=== PATIENT | female | born 1970 | race Caucasian/White ===

== ENCOUNTER → 2021-08-24 09:46 | Outpatient (BNVA) | payer OTHER, SELFPAY | PROVIDERS: PCP Internal Medicine; Visit Provider Internal Medicine | DX: Z86.73 Personal history of transient ischemic attack (TIA), and cerebral infarction without residual deficits (principal) | CPT/HCPCS: 93005; 99202 ==

== ENCOUNTER 2021-08-30 09:17 | Outpatient (REF) | payer OTHER, SELFPAY ==
[2021-08-30 09:27] VITALS: BMI 35.0
[2021-08-30 09:28] VITALS: BP 138/85; PULSE 73; RESP 16; TEMP 36.4; O2SAT 98
[2021-08-30 09:55] VITALS: BP 101/60; PULSE 61; RESP 16; O2SAT 96
--- NOTE | 2021-08-30 12:03 | P.BOP_ITS ---
Brief Operative Note Date of Service: 08/30/21 Pre-op diagnosis: CVA Post-op diagnosis: same Procedure: Placement of implantable loop recorder Implants: After obtaining full informed consent patient was brought to the minor surgery suite. Patient was then laid supine on the operating table. Patient's precordial area was then prepped and draped in a sterile fashion. Patient was then given 2% lidocaine with epinephrine intradermally and subcutaneously in the precordial area. A [facility] implantable loop recorder with serial [id number] was placed in subcutaneous area using Seldinger technique. Measured R-wave at 0.37 mV. The wound was then closed with a Steri-Strip and a pressure bandage applied. Patient tolerated the procedure well Surgeon: Mustapha Galeano MD Anesthesia: local Was an Occupational Therapy Assistant used for this Procedure?: No Estimated blood loss (mL): 1 Pathology: none sent Condition: stable Disposition: same day
== END 2021-08-30 09:18 | disposition home or self-care (01) ==
LOC: HO.MS 09:17
PROVIDERS: PCP Internal Medicine; Visit Provider Internal Medicine Cardiovascular Disease
PROC: (CPT 33285; principal; 2021-08-30 09:30)
DX: I63.9 Cerebral infarction, unspecified (principal)
CPT/HCPCS: 33285; C1764

== ENCOUNTER 2021-09-07 07:00 | Day surgery (SDC) | payer OTHER, SELFPAY ==
--- NOTE | 2021-09-06 09:48 | HO.ANESPROP2 ---
Documented by User: Cuca Quiroz NP 09/06/21 09:50 HPI - Anesthesia Eval Consult details Narrative: 50yo F for Transesophageal Echocardiogram s/p embolic CVA 04/2021 ILR in situ PMFSH Active Problems Active Problems: All Active Problems (Updated 09/04/21 @ 09:27 by Ashley Pierson, MONSERRAT) Embolic stroke (Acute) Past Medical History Medical History Depression Diverticulosis Gastrointestinal bleeding Hiatal hernia History of embolic stroke Iron deficiency anemia Status post placement of implantable loop recorder Family History Family History Father Hypertension Atrial fibrillation Mother Hypertension Surgical History Surgical History No pertinent past surgical history Social History Social History Patient Tobacco Use Status: Former Tobacco user Are you DNR?: No Advance Directives: No Advance Directives Information Provided: Yes Recently lost weight without trying: No Meds Allergies Allergy/AdvReac Type Severity Reaction Status Date / Time No Known Allergies Allergy Verified 08/24/21 09:52 Home Medications Medication Instructions Recorded Confirmed Last Taken Type aspirin 81 mg tablet,delayed 81 mg PO DAILY 08/24/21 09/04/21 09/07/21 History release atorvastatin 80 mg tablet 80 mg PO DAILY 08/24/21 09/04/21 Unknown History buspirone 5 mg tablet 5 mg PO TID 08/24/21 09/04/21 09/07/21 History ferrous sulfate 325 mg (65 mg mg PO 08/24/21 08/24/21 09/07/21 History iron) tablet,delayed release fluoxetine 20 mg capsule 20 mg PO DAILY 08/24/21 09/04/21 Unknown History losartan 100 mg tablet 100 mg PO DAILY 08/24/21 09/04/21 Unknown History pantoprazole 40 mg tablet,delayed 40 mg PO BID 08/24/21 09/04/21 09/07/21 History release trazodone 50 mg tablet 25 mg PO BEDTIME PRN 08/24/21 09/04/21 Unknown History Exam Exam Date and Time: September 06, 2021 0948 Narrative Narrative: EKG 08/2021 sinus bradycardia, 52/Min; no significant ST-T changes and otherwise unremarkable transthoracic echocardiogram at [facility] 04/2021 that showed LVEF of 70%; mild eccentric septal hypertrophy but otherwise unremarkable.? Bubble study quality was limited but no obvious shunting Assessment and Plan Assessment Anesthesia Assessment: Chart Reviewed Documented by User: Savannah Harrison MD 09/07/21 07:57 PMFSH Past Medical History Medical History Depression Diverticulosis Gastrointestinal bleeding Hiatal hernia History of embolic stroke Iron deficiency anemia Status post placement of implantable loop recorder Family History Family History Father Hypertension Atrial fibrillation Mother Hypertension Surgical History Surgical History No pertinent past surgical history History of Problems with Anesthesia: No Social History Social History Patient Tobacco Use Status: Former Tobacco user Are you DNR?: No Advance Directives: No Advance Directives Information Provided: Yes Recently lost weight without trying: No Meds Allergies Allergy/AdvReac Type Severity Reaction Status Date / Time No Known Allergies Allergy Verified 08/24/21 09:52 Home Medications Medication Instructions Recorded Confirmed Last Taken Type aspirin 81 mg tablet,delayed 81 mg PO DAILY 08/24/21 09/04/21 09/07/21 History release atorvastatin 80 mg tablet 80 mg PO DAILY 08/24/21 09/04/21 Unknown History buspirone 5 mg tablet 5 mg PO TID 08/24/21 09/04/21 09/07/21 History ferrous sulfate 325 mg (65 mg mg PO 08/24/21 08/24/21 09/07/21 History iron) tablet,delayed release fluoxetine 20 mg capsule 20 mg PO DAILY 08/24/21 09/04/21 Unknown History losartan 100 mg tablet 100 mg PO DAILY 08/24/21 09/04/21 Unknown History pantoprazole 40 mg tablet,delayed 40 mg PO BID 08/24/21 09/04/21 09/07/21 History release trazodone 50 mg tablet 25 mg PO BEDTIME PRN 08/24/21 09/04/21 Unknown History Exam Airway Mallampati Class: II TM Dist: >3cm Neck ROM: Full Loose/Missing/Broken Teeth: No Heart: RRR Lungs: CTA Assessment and Plan Assessment Anesthesia Assessment: Anesthesia Plan Discussed Final Anesthetic Review History of Problems with Anesthesia: No NPO: Yes ASA Class: III Final Preanesthetic Review: Meds/Allgs Chart Reviewed, Consent Obtained/Reviewed and Anes Risks/Benef Reviewed Patient Risk: Intermediate Procedure Risk: Low Anesthetic Plan Anesthetic Plan: MAC: Disposition: Standard PACU
[2021-09-07 07:02] VITALS: BP 115/81; PULSE 64; RESP 18; TEMP 36.1; O2SAT 98; BMI 36.1
[2021-09-07] MEDS: Lactated Ringers 1,000 ML 100 ML IVCONT (07:26)
--- NOTE | 2021-09-07 07:46 | CA_ITS ---
Transesophageal Echocardiogram Amended Patient (Last, First, Middle): Dasha Vincent, Gender: Female Date of : 1970 Age: 50 Procedure Date: 09/07/2021 Procedure Type: Transesophageal Echocardiogram Location: OP Height: 160.02 cm Weight: 92.53 kg BSA: 1.95 m2 Heart Rate: bpm BP: 115 / 81 mmHg Lumber Straightened: ANGÉLICA Referring MD: Maximilian Lau MD Symptoms: I63.9 - Cerebral infarction, unspecified Conclusion: ??? No evidence of interatrial shunting. ??? Small plaque is seen in the arch and descending thoracic aorta. Findings Procedure Information The quality of the study was good. Consent was obtained prior to the procedure. Pre LUCY oral cavity was checked and revealed no overcrowding. The adult 3D probe was passed with no difficulty. Left Ventricle Normal left ventricular cavity size. The left ventricular systolic function is normal. The visually estimated ejection fraction is between 60-65%. Right Ventricle Normal right ventricular cavity size and systolic function. Atria There is lipomatous hypertrophy of the interatrial septum. There is no evidence of a thrombus in the left atrial appendage. Normal velocities at the mouth of appendage. Color Doppler negative for interatrial shunting.Bubble study attempted 3 times. No evidence of interatrial shunting. Abdominal pressure was also applied with no change. Aortic Valve There is a normal trileaflet aortic valve. There is no aortic valve stenosis. There is trace (trivial) aortic valve regurgitation. Mitral Valve The mitral valve appears normal. There is trace mitral valve regurgitation. There is no mitral valve stenosis. Pulmonic Valve The pulmonic valve is likely normal. Tricuspid Valve Normal tricuspid valve structure. There is trace tricuspid valve regurgitation. Great Vessels Small plaque is seen in the arch and descending thoracic aorta. Pericardium/Pleural There is no evidence of pericardial effusion. Prior Study Comparison No prior study available for comparison. Updated by Maximilian Lau on 05:27 PM with Status of Final Maximilian Lau MD electronically signed on 09/07/2021 5:27:37 PM with status of Final
--- NOTE | 2021-09-07 08:18 | MHC.SHP ---
Pre-Procedural Eval Section A Date of Service: 09/07/21 The patient is an INPATIENT: No Section B Chief Complaint: infarction Allergies: Allergies Allergy/AdvReac Type Severity Reaction Status Date / Time No Known Allergies Allergy Verified 08/24/21 09:52 Plan I have reviewed the history and physical and performed a pertinent physical examination on my patient. No changes have occurred unless specified.
[2021-09-07 08:53] VITALS: BP 108/51; PULSE 57; RESP 18; TEMP 36.4; O2SAT 97
[2021-09-07 09:10] VITALS: BP 119/67; PULSE 59; RESP 15; TEMP 36.6; O2SAT 97
== END 2021-09-07 09:41 | disposition home or self-care (01) ==
PROVIDERS: PCP Internal Medicine; Visit Provider Internal Medicine
PROC: (CPT 93312; principal; 2021-09-07 08:30)
DX: I63.10 Cerebral infarction due to embolism of unspecified precerebral artery (principal); G81.94 Hemiplegia, unspecified affecting left nondominant side; Z95.818 Presence of other cardiac implants and grafts; F32.9 Major depressive disorder, single episode, unspecified; D50.9 Iron deficiency anemia, unspecified; Z79.82 Long term (current) use of aspirin; Z79.899 Other long term (current) drug therapy; Z87.891 Personal history of nicotine dependence
CPT/HCPCS: 93312

== ENCOUNTER → 2021-09-25 08:32 | Outpatient (BNVA) | payer OTHER, SELFPAY | PROVIDERS: PCP Internal Medicine; Visit Provider Internal Medicine | DX: Z86.73 Personal history of transient ischemic attack (TIA), and cerebral infarction without residual deficits (principal); I10 Essential (primary) hypertension; E78.5 Hyperlipidemia, unspecified; Z95.818 Presence of other cardiac implants and grafts; Z79.899 Other long term (current) drug therapy | CPT/HCPCS: 99212 ==

== ENCOUNTER → 2022-03-27 08:23 | Outpatient (BNVA) | payer OTHER, SELFPAY | PROVIDERS: PCP Internal Medicine; Visit Provider Internal Medicine | DX: I10 Essential (primary) hypertension (principal); E78.5 Hyperlipidemia, unspecified; Z86.73 Personal history of transient ischemic attack (TIA), and cerebral infarction without residual deficits; Z79.899 Other long term (current) drug therapy | CPT/HCPCS: 99212 ==

== ENCOUNTER → 2023-01-18 23:59 | Outpatient (BNV) | payer OTHER, SELFPAY ==
--- NOTE | 2023-01-27 14:40 | MHC.OFFVIS ---
Intake Intake Visit Reasons: Remote ILR- [facility] Allergies No Known Allergies Allergy (Verified 03/27/22 08:29) [facility] Medical History (Updated 09/25/21 @ 12:27 by Maximilian Lau MD) Depression Diverticulosis Essential hypertension Gastrointestinal bleeding Hiatal hernia History of embolic stroke Iron deficiency anemia Other and unspecified hyperlipidemia Status post placement of implantable loop recorder Surgical History No pertinent past surgical history Family History Father Hypertension Atrial fibrillation Mother Hypertension Social History Patient Tobacco Use Status: Former Tobacco user Office Procedures Cardiac Device Check Cardiac Device Check Details: Date of service 01/18/2023; in the current monitoring period, there is no evidence of atrial fibrillation. No atrial fibrilllation during lifetime. [id number] Cardiac Interrogation, subcut cardiac rhythm monitor Procedure code (CPT) selection complete Assessment & Plan Assessment & Plan (1) Embolic stroke: Code(s): I63.9 - Cerebral infarction, unspecified Coding Level of Care Code Procedure Only Diagnoses Embolic stroke I63.9 CPT Codes Cardiac Device Check - Cardiac Device 16: [id number] Cardiac Interrogation, subcut cardiac rhythm monitor ([id number])
== END ==
PROVIDERS: PCP Internal Medicine; Visit Provider Internal Medicine
DX: I63.9 Cerebral infarction, unspecified (principal)
CPT/HCPCS: 93298

== ENCOUNTER → 2023-02-18 23:59 | Outpatient (BNV) | payer OTHER, SELFPAY ==
--- NOTE | 2023-02-20 09:50 | MHC.OFFVIS ---
Intake Intake Visit Reasons: Remote ILR Check- [facility] Allergies No Known Allergies Allergy (Verified 03/27/22 08:29) [facility] Medical History (Updated 09/25/21 @ 12:27 by Maximilian Lau MD) Depression Diverticulosis Essential hypertension Gastrointestinal bleeding Hiatal hernia History of embolic stroke Iron deficiency anemia Other and unspecified hyperlipidemia Status post placement of implantable loop recorder Surgical History No pertinent past surgical history Family History Father Hypertension Atrial fibrillation Mother Hypertension Social History Patient Tobacco Use Status: Former Tobacco user Office Procedures Cardiac Device Check Cardiac Device Check Details: Date of service 02/18/2023; in the current monitoring period, there is no evidence of atrial fibrillation. No atrial fibrilllation during lifetime. [id number] Cardiac Interrogation, subcut cardiac rhythm monitor Procedure code (CPT) selection complete Assessment & Plan Assessment & Plan (1) Embolic stroke: Code(s): I63.9 - Cerebral infarction, unspecified Coding Level of Care Code Procedure Only Diagnoses Embolic stroke I63.9 CPT Codes Cardiac Device Check - Cardiac Device 16: [id number] Cardiac Interrogation, subcut cardiac rhythm monitor ([id number])
== END ==
PROVIDERS: PCP Internal Medicine; Visit Provider Internal Medicine
DX: I63.9 Cerebral infarction, unspecified (principal)
CPT/HCPCS: 93298

== ENCOUNTER → 2023-03-21 23:59 | Outpatient (BNV) | payer OTHER, SELFPAY ==
--- NOTE | 2023-03-21 13:51 | MHC.OFFVIS ---
Intake Intake Visit Reasons: Remote ILR Check- [facility] Allergies No Known Allergies Allergy (Verified 03/27/22 08:29) [facility] Medical History (Updated 09/25/21 @ 12:27 by Maximilian Lau MD) Other and unspecified hyperlipidemia Essential hypertension Depression Status post placement of implantable loop recorder History of embolic stroke Diverticulosis Gastrointestinal bleeding Hiatal hernia Iron deficiency anemia Surgical History No pertinent past surgical history Family History Father Hypertension Atrial fibrillation Mother Hypertension Social History Patient Tobacco Use Status: Former Tobacco user Office Procedures Cardiac Device Check Cardiac Device Check Details: Date of service 03/21/2023; in the current monitoring period, there is no evidence of atrial fibrillation. No atrial fibrilllation during lifetime. [id number] Cardiac Interrogation, subcut cardiac rhythm monitor Procedure code (CPT) selection complete Assessment & Plan Assessment & Plan (1) Embolic stroke: Code(s): I63.9 - Cerebral infarction, unspecified Coding Level of Care Code Procedure Only Diagnoses Embolic stroke I63.9 CPT Codes Cardiac Device Check - Cardiac Device 16: [id number]-[id number] Cardiac Interrogation, subcut cardiac rhythm monitor ([id number])
== END ==
PROVIDERS: PCP Internal Medicine; Visit Provider Internal Medicine
DX: I63.9 Cerebral infarction, unspecified (principal)
CPT/HCPCS: 93298

== ENCOUNTER → 2023-04-21 23:59 | Outpatient (BNV) | payer OTHER, SELFPAY ==
--- NOTE | 2023-04-25 15:48 | A.OFFVIS_ITS ---
Intake Intake Visit Reasons: Remote ILR Check- [facility] Allergies No Known Allergies Allergy (Verified 03/27/22 08:29) [facility] Medical History (Updated 09/25/21 @ 12:27 by Maximilian Lau MD) Other and unspecified hyperlipidemia Essential hypertension Depression Status post placement of implantable loop recorder History of embolic stroke Diverticulosis Gastrointestinal bleeding Hiatal hernia Iron deficiency anemia Surgical History No pertinent past surgical history Family History Father Hypertension Atrial fibrillation Mother Hypertension Social History Patient Tobacco Use Status: Former Tobacco user Office Procedures Cardiac Device Check Cardiac Device Check Details: Date of service 04/21/2023; in the current monitoring period, there is no evidence of atrial fibrillation. [id number] Cardiac Interrogation, subcut cardiac rhythm monitor Procedure code (CPT) selection complete Assessment & Plan Assessment & Plan (1) Embolic stroke: Code(s): I63.9 - Cerebral infarction, unspecified Coding Level of Care Code Procedure Only Diagnoses Embolic stroke I63.9 CPT Codes Cardiac Device Check - Cardiac Device 16: 34066-Dmnabv Cardiac Interrogation, subcut cardiac rhythm monitor ([id number])
== END ==
PROVIDERS: PCP Internal Medicine; Visit Provider Internal Medicine
DX: I63.9 Cerebral infarction, unspecified (principal); Z95.818 Presence of other cardiac implants and grafts
CPT/HCPCS: 93298

== ENCOUNTER → 2023-05-22 23:59 | Outpatient (BNV) | payer OTHER, SELFPAY ==
--- NOTE | 2023-05-26 10:34 | A.OFFVIS_ITS ---
Intake Intake Visit Reasons: Remote ILR Check- [facility] Allergies No Known Allergies Allergy (Verified 03/27/22 08:29) [facility] Medical History (Updated 09/25/21 @ 12:27 by Maximilian Lau MD) Other and unspecified hyperlipidemia Essential hypertension Depression Status post placement of implantable loop recorder History of embolic stroke Diverticulosis Gastrointestinal bleeding Hiatal hernia Iron deficiency anemia Surgical History No pertinent past surgical history Family History Father Hypertension Atrial fibrillation Mother Hypertension Social History Patient Tobacco Use Status: Former Tobacco user Office Procedures Cardiac Device Check Cardiac Device Check Details: Date of service 05/22/2023; in the current monitoring period, there is no evidence of atrial fibrillation. 34274-[id number] Cardiac Interrogation, subcut cardiac rhythm monitor Procedure code (CPT) selection complete Assessment & Plan Assessment & Plan (1) Embolic stroke: Code(s): I63.9 - Cerebral infarction, unspecified Plan x Coding Level of Care Code Procedure Only Diagnoses Embolic stroke I63.9 CPT Codes Cardiac Device Check - Cardiac Device 16: [id number] Cardiac Interrogation, subcut cardiac rhythm monitor ([id number])
== END ==
PROVIDERS: PCP Internal Medicine; Visit Provider Internal Medicine
DX: I63.9 Cerebral infarction, unspecified (principal); Z95.818 Presence of other cardiac implants and grafts
CPT/HCPCS: 93298

== ENCOUNTER → 2023-06-22 23:59 | Outpatient (BNV) | payer OTHER, SELFPAY ==
--- NOTE | 2023-06-25 14:57 | A.OFFVIS_ITS ---
Intake Intake Visit Reasons: Remote ILR Check- [facility] Allergies No Known Allergies Allergy (Verified 03/27/22 08:29) [facility] Medical History (Updated 09/25/21 @ 12:27 by Maximilian Lau MD) Other and unspecified hyperlipidemia Essential hypertension Depression Status post placement of implantable loop recorder History of embolic stroke Diverticulosis Gastrointestinal bleeding Hiatal hernia Iron deficiency anemia Surgical History No pertinent past surgical history Family History Father Hypertension Atrial fibrillation Mother Hypertension Social History Patient Tobacco Use Status: Former Tobacco user Office Procedures Cardiac Device Check Cardiac Device Check Details: Date of service 06/22/2023; in the current monitoring period, there is no evidence of atrial fibrillation. [id number]-[id number] Cardiac Interrogation, subcut cardiac rhythm monitor Procedure code (CPT) selection complete Assessment & Plan Assessment & Plan (1) Embolic stroke: Code(s): I63.9 - Cerebral infarction, unspecified Plan x Coding Level of Care Code Procedure Only Diagnoses Embolic stroke I63.9 CPT Codes Cardiac Device Check - Cardiac Device 16: 70041-Vbckog Cardiac Interrogation, subcut cardiac rhythm monitor ([id number])
== END ==
PROVIDERS: PCP Internal Medicine; Visit Provider Internal Medicine
DX: I63.9 Cerebral infarction, unspecified (principal); Z95.818 Presence of other cardiac implants and grafts
CPT/HCPCS: 93298

== ENCOUNTER → 2023-07-28 23:59 | Outpatient (BNV) | payer OTHER, SELFPAY ==
--- NOTE | 2023-07-29 19:07 | MHC.OFFVIS ---
Intake Intake Visit Reasons: Remote ILR Check- [facility] Allergies No Known Allergies Allergy (Verified 03/27/22 08:29) [facility] Medical History (Updated 09/25/21 @ 12:27 by Maximilian Lau MD) Other and unspecified hyperlipidemia Essential hypertension Depression Status post placement of implantable loop recorder History of embolic stroke Diverticulosis Gastrointestinal bleeding Hiatal hernia Iron deficiency anemia Surgical History No pertinent past surgical history Family History Father Hypertension Atrial fibrillation Mother Hypertension Social History Patient Tobacco Use Status: Former Tobacco user Office Procedures Cardiac Device Check Cardiac Device Check Details: Date of service 07/28/2023; in the current monitoring period, there is no evidence of atrial fibrillation. [id number] Cardiac Interrogation, subcut cardiac rhythm monitor Procedure code (CPT) selection complete Assessment & Plan Assessment & Plan (1) Embolic stroke: Code(s): I63.9 - Cerebral infarction, unspecified Plan x Coding Level of Care Code Procedure Only Diagnoses Embolic stroke I63.9 CPT Codes Cardiac Device Check - Cardiac Device 16: [id number] Cardiac Interrogation, subcut cardiac rhythm monitor ([id number])
== END ==
PROVIDERS: PCP Internal Medicine; Visit Provider Internal Medicine
DX: I63.9 Cerebral infarction, unspecified (principal)
CPT/HCPCS: 93298

== ENCOUNTER → 2023-08-23 23:59 | Outpatient (BNV) | payer OTHER, SELFPAY ==
--- NOTE | 2023-08-25 13:13 | MHC.OFFVIS ---
Intake Intake Visit Reasons: Remote ILR Check- [facility] Allergies No Known Allergies Allergy (Verified 03/27/22 08:29) [facility] Medical History (Updated 09/25/21 @ 12:27 by Maximilian Lau MD) Other and unspecified hyperlipidemia Essential hypertension Depression Status post placement of implantable loop recorder History of embolic stroke Diverticulosis Gastrointestinal bleeding Hiatal hernia Iron deficiency anemia Surgical History No pertinent past surgical history Family History Father Hypertension Atrial fibrillation Mother Hypertension Social History Patient Tobacco Use Status: Former Tobacco user Office Procedures Cardiac Device Check Cardiac Device Check Details: Date of service 08/23/2023; in the current monitoring period, there is no evidence of atrial fibrillation. [id number] Cardiac Interrogation, subcut cardiac rhythm monitor Procedure code (CPT) selection complete Assessment & Plan Assessment & Plan (1) Embolic stroke: Code(s): I63.9 - Cerebral infarction, unspecified Plan x Coding Level of Care Code Procedure Only Diagnoses Embolic stroke I63.9 CPT Codes Cardiac Device Check - Cardiac Device 16: [id number] Cardiac Interrogation, subcut cardiac rhythm monitor ([id number])
== END ==
PROVIDERS: PCP Internal Medicine; Visit Provider Internal Medicine
DX: I63.9 Cerebral infarction, unspecified (principal); Z95.818 Presence of other cardiac implants and grafts
CPT/HCPCS: 93298

== ENCOUNTER → 2023-09-23 23:59 | Outpatient (BNV) | payer OTHER, SELFPAY ==
--- NOTE | 2023-09-26 15:19 | MHC.OFFVIS ---
Intake Intake Visit Reasons: Remote ILR Check- [facility] Allergies No Known Allergies Allergy (Verified 03/27/22 08:29) [facility] Medical History (Updated 09/25/21 @ 12:27 by Maximilian Lau MD) Other and unspecified hyperlipidemia Essential hypertension Depression Status post placement of implantable loop recorder History of embolic stroke Diverticulosis Gastrointestinal bleeding Hiatal hernia Iron deficiency anemia Surgical History No pertinent past surgical history Family History Father Hypertension Atrial fibrillation Mother Hypertension Social History Patient Tobacco Use Status: Former Tobacco user Office Procedures Cardiac Device Check Cardiac Device Check Details: Date of service 09/23/2023; in the current monitoring period, there is no evidence of atrial fibrillation. [id number] Cardiac Interrogation, subcut cardiac rhythm monitor Procedure code (CPT) selection complete Assessment & Plan Assessment & Plan (1) Embolic stroke: Code(s): I63.9 - Cerebral infarction, unspecified Plan x Coding Level of Care Code Procedure Only Diagnoses Embolic stroke I63.9 CPT Codes Cardiac Device Check - Cardiac Device 16: [id number]-[id number] Cardiac Interrogation, subcut cardiac rhythm monitor ([id number])
== END ==
PROVIDERS: PCP Internal Medicine; Visit Provider Internal Medicine
DX: I63.9 Cerebral infarction, unspecified (principal); Z95.818 Presence of other cardiac implants and grafts
CPT/HCPCS: 93298

== ENCOUNTER 2023-11-08 13:50 | Outpatient (AMB) | payer OTHER, SELFPAY ==
[2023-11-08 14:18] VITALS: BP 130/82; PULSE 66; BMI 40.3
--- NOTE | 2023-11-08 14:18 | MHC.OFFVIS ---
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 Her last prior visit to our office was 03/27/2022. According to remote monitoring her ILR has reach end of battery life. Today she reports she has been doing well since her last visit. She denies having any recurrent CVA type symptoms. She has no residual deficits. No chest discomfort at rest or with activity. No concerning shortness of breath, palpitations, lightheadedness, presyncope, syncope, PND, orthopnea or edema. Compliant with meds. [facility] Medical History Other and unspecified hyperlipidemia Essential hypertension Depression Status post placement of implantable loop recorder History of embolic stroke Diverticulosis Gastrointestinal bleeding Hiatal hernia Iron deficiency anemia Surgical History No pertinent past surgical history Family History Father Hypertension Atrial fibrillation Mother Hypertension Social History Patient Tobacco Use Status: Former Tobacco user Quit Date: 2020 Review of Systems Const All systems reviewed & are unremarkable except as noted in HPI and below ENT Denies dizziness Card Denies chest pain, Denies chest pain at rest, Denies chest pain with activity, Denies rapid heart rate, Denies pedal edema, Denies edema, Denies leg edema, Denies lightheadedness, Denies palpitations, Denies dyspnea, Denies dyspnea on exertion and Denies orthopnea Resp Denies cough, Denies dyspnea and Denies dyspnea on exertion GI Denies hematochezia and Denies change in stool character Musc Denies abnormal gait, Denies limited range of motion, Denies muscle cramps, Denies muscle weakness, Denies numbness, Denies radiating pain into limb, Denies stiffness and Denies tingling Neuro Denies abnormal gait, Denies dizziness, Denies numbness and Denies tingling Endo Denies palpitations Physical Exam Vital Signs: Last Vital Signs Pulse 66 11/08/23 14:18 BP 130/82 11/08/23 14:18 BMI result Body Mass Index 40.3 Const General: cooperative, healthy appearing, comfortable and no acute distress Orientation/consciousness: patient oriented x3 Neck Neck: Yes normal visual inspection and Yes no JVD Chest Other: ILR palpable left medial chest Resp Effort & Inspection: normal respiratory effort Auscultation: clear to auscultation bilaterally, no crackles, no rales, no rhonchi and no wheezes Cardio Jugular venous distension: no JVD Rate: regular rate Rhythm: regular rhythm Heart sounds: S1 normal heart sound present, S2 normal heart sound present, no murmurs and no rubs Skin General skin exam: no rashes or lesions noted Neuro General: patient oriented x3 Psych Appearance: grossly normal Mental Status: mental status grossly normal Speech and movement: Normal speech and movement present Office Procedures EKG Details: Today, read by me, normal sinus rhythm, no acute ST or T-wave abnormalities, rate 66, QTC 429 milliseconds [id number], Complete Assessment & Plan Assessment & Plan (1) Status post placement of implantable loop recorder: Comment: 08/2021- Dr. Galeano Code(s): Z95.818 - Presence of other cardiac implants and grafts Category: Medical Plan: Implanted loop recorder placed 08/30/2021 due to cryptogenic stroke. Cardiac monitoring for over 2 year shows no evidence of atrial fibrillation. At this time her ILR battery has reached end of life. Will make arrangements for ILR removal with Dr. Galeano in the near future. Procedure reviewed with her. Patient is agreeable to this plan. Cardiology follow-up will be 1 week post removal to assess wound. Following that visit her cardiology follow-up will be only as needed. (2) Essential hypertension: Code(s): I10 - Essential (primary) hypertension Category: Medical Plan: Well controlled at this time. No med changes made. (3) Embolic stroke: Code(s): I63.9 - Cerebral infarction, unspecified Category: Medical Plan: As above Plan Time spent on chart review, documentation, interview, assessment Coding Level of Care Code Est Pt Level 3 (30218) Diagnoses Status post placement of implantable loop recorder Z95.818 Essential hypertension I10 Embolic stroke I63.9 CPT Codes EKG - CPT: 46262-[id number], Complete ([id number]) Time Spent (min) 24
== END 2023-11-08 14:44 | disposition home or self-care (01) ==
PROVIDERS: PCP Internal Medicine; Visit Provider Nurse Practitioner Family
DX: I10 Essential (primary) hypertension (principal); E78.5 Hyperlipidemia, unspecified; Z95.818 Presence of other cardiac implants and grafts; Z45.09 Encounter for adjustment and management of other cardiac device
CPT/HCPCS: 93010; 99213

== ENCOUNTER → 2023-11-08 13:50 | Outpatient (BNVA) | payer OTHER, SELFPAY | PROVIDERS: PCP Internal Medicine; Visit Provider Nurse Practitioner Family | DX: I63.9 Cerebral infarction, unspecified (principal); I10 Essential (primary) hypertension; Z95.818 Presence of other cardiac implants and grafts | CPT/HCPCS: 93005; 99212 ==

== ENCOUNTER 2023-11-27 13:19 | Outpatient (REF) | payer OTHER, SELFPAY ==
[2023-11-27 13:48] VITALS: BP 177/92; PULSE 63; RESP 18; TEMP 36.6; O2SAT 98; BMI 36.0
--- NOTE | 2023-11-27 14:25 | P.BOP_ITS ---
Brief Operative Note Date of Service: 11/27/23 Pre-op diagnosis: ILR in place Post-op diagnosis: same Procedure: Removal of ILR Implants: After obtaining the consent patient was brought to minor surgery. She was the laid supine on the operating table. The precordial area was then prepped and draped in sterile fahion. Patient was then administered 2% lidocaine with epinephrine intradermally and subcutaneously around the head of the device. A small incision was then made. After some blunt dissection the device was removed with a halie forcep. The wound was then closed with steristrips and pressure dressing appled. Patient developed a vasovagal response to procedure which corrected after putting patient in supine position. Surgeon: Mustapha Galeano MD Anesthesia: local Was an [employer] Operator used for this Procedure?: No Estimated blood loss (mL): 2 Pathology: none sent Condition: stable Disposition: same day
== END 2023-11-27 13:20 | disposition home or self-care (01) ==
LOC: HO.MS 13:19
PROVIDERS: PCP Internal Medicine; Visit Provider Internal Medicine Cardiovascular Disease
PROC: (CPT 33286; principal; 2023-11-27 14:00)
DX: Z95.818 Presence of other cardiac implants and grafts (principal)
CPT/HCPCS: 33286

== ENCOUNTER → 2023-11-27 13:19 | Outpatient (BNV) | payer OTHER, SELFPAY | PROVIDERS: PCP Internal Medicine; Visit Provider Internal Medicine Cardiovascular Disease | DX: Z45.09 Encounter for adjustment and management of other cardiac device (principal) | CPT/HCPCS: 33286 ==